=== PATIENT | female | born 1960 | race Caucasian/White ===

== ENCOUNTER 2019-06-19 10:00 | Outpatient (CLI) | payer BC ==
--- NOTE | 2019-06-19 18:50 | RAD ---
CERVICAL SPINE THREE VIEWS: 06/19/19 Exam in three views shows mild disc space narrowing at C5-C6. The other disc spaces appear normal. No fracture or dislocation was seen. There really are no degenerative changes prominent in this patient 's spine otherwise. The C1-2 dens distance is normal and the soft tissues are normal in thickness. IMPRESSION: Mild disc space narrowing at C5-C6. POS: HOME
== END 2019-06-19 10:01 | disposition home or self-care (01) ==
LOC: BURRAD 10:00
PROVIDERS: ATTEND Physician Assistant
DX: M54.2 Cervicalgia (principal); M50.322 Other cervical disc degeneration at C5-C6 level
CPT/HCPCS: 72040